=== PATIENT | female | born 1945 | race African-American/Black ===

== ENCOUNTER 2025-01-27 06:03 | Inpatient (IN) | payer MEDICARE, MEDICAID ==
[~2025-01-27] VITALS: Ht 165.1 cm; Wt 87.1 kg
[2025-01-27 06:08] VITALS: O2SAT 99
[2025-01-27 06:42] LABS: BASOPHILS % 0.4 % (0.0-2.0); EOSINOPHILS % 3.1 % (0.0-5.0); HEMATOCRIT. 36.7 % (36.0-48.0); HEMOGLOBIN. 11.7 g/dL (12.0-16.0); LYMPHOCYTES % 20.0 % (20.0-50.0); MEAN PLATELET VOLUME 9.0 fl (7.4-10.4); MONOCYTES % 5.8 % (2.0-8.0); NEUTROPHILS % 70.7 % (40.0-76.0); PLATELET 261 x1000/uL (130-400); RED BLOOD CELL COUNT 4.25 mill/uL (4.2-5.4); RED CELL DISTRIBUTION WIDTH 15.9 % (11.6-14.6)
[2025-01-27] MEDS: SODIUM CHLORIDE 0.9% 500 ML IV ONE (06:56)
[2025-01-27 06:57] LABS: CREATININE 0.6 mg/dL (0.6-1.0); UREA NITROGEN BLOOD 14 mg/dL (9-23)
[2025-01-27] MEDS ORDERED: DEXTROSE 50% WATER 50ML SYRINGE IV PRN (07:45)
[2025-01-27 08:00] VITALS: BP 138/64; PULSE 76; RESP 19; TEMP 36.5; O2SAT 100
[2025-01-27] MEDS: INSULIN LISPRO 100 UNITS/ML SUBCUT SCH (08:20)
[2025-01-27 08:45] LABS: CORTISOL 18.8 ucg/dL
[2025-01-27 08:46] LABS: ASPARTATE AMINOTRANSFERASE 12 IU/L (<34)
[2025-01-27 08:47] LABS: BILIRUBIN DIRECT < 0.1 mg/dL (<=3.0); BILIRUBIN TOTAL 0.3 mg/dL (0.1-1.0); PHOSPHORUS 3.2 mg/dL (2.5-4.9); PROTEIN TOTAL 7.3 g/dL (6.0-8.3)
[2025-01-27 08:48] LABS: T4 FREE 1.15 ng/dL (0.89-1.76)
[2025-01-27 08:50] LABS: FOLIC ACID (FOLATE) SERUM 10.82 ng/mL (>5.38); VITAMIN B12 SERUM 1551 pg/mL (211-911)
[2025-01-27] MEDS: BLOOD SUGAR DIAGNOSTIC STRIP TEST SCH (09:00)
[2025-01-27] MEDS ORDERED: GUAIFENESIN 200MG/10ML SUGAR FREE UDC PO PRN (09:15)
[2025-01-27] MEDS ORDERED: CLONIDINE 0.1MG TABLET PO PRN (09:15)
[2025-01-27] MEDS ORDERED: MAGNESIUM/ALUMINUM HYDROXIDE/SIMETHICONE 30ML UDC PO PRN (09:15)
[2025-01-27] MEDS ORDERED: ACETAMINOPHEN 325MG TABLET PO PRN (09:15)
[2025-01-27] MEDS ORDERED: IPRATROPIUM/ALBUTEROL 0.5-3(2.5)MG/3ML NEB HHN PRN (09:15)
[2025-01-27] MEDS ORDERED: HYDRALAZINE 20MG/ML VIAL IV PRN (09:30)
[2025-01-27 09:38] LABS: ERYTHROCYTE SEDIMENTATION RATE 49.0 mm/hr (0-30)
[2025-01-27] MEDS: ENOXAPARIN 40MG/0.4ML SYR SUBCUT SCH (10:00)
[2025-01-27 12:00] VITALS: BP 130/64; PULSE 80; RESP 19; TEMP 36.6; O2SAT 100
[2025-01-27] MEDS: MULTIVITAMINS,THER W-MINERALS TABLET PO SCH (12:05)
[2025-01-27] MEDS: FERROUS SULFATE 325MG TABLET PO SCH (12:05)
[2025-01-27] MEDS: FOLIC ACID 1MG TABLET PO SCH (12:06)
[2025-01-27] MEDS: THIAMINE HCL 100MG TABLET PO SCH (12:06)
[2025-01-27] MEDS: ACETAMINOPHEN 325MG TABLET PO PRN (12:06)
[2025-01-27] MEDS: AMLODIPINE 5MG TABLET PO SCH (12:08)
[2025-01-27] MEDS: SODIUM CHLORIDE 0.45% 1,000 ML IV ONE (13:47)
[2025-01-27] MEDS: PANTOPRAZOLE SODIUM 40 MG/VIAL IV SCH (13:47)
[2025-01-27 15:13] VITALS: BP 130/64; PULSE 80; RESP 19; TEMP 36.6404
[2025-01-27] MEDS: TRAMADOL 50MG TABLET PO PRN (15:48)
[2025-01-27 16:00] VITALS: BP 133/71; PULSE 85; RESP 19; TEMP 36.7; O2SAT 100
[2025-01-27 16:11] LABS: TROPONIN I HIGH SENSITIVITY < 4 ng/L (3.0-34)
[2025-01-27 20:00] VITALS: BP 123/99; PULSE 89; RESP 20; TEMP 36.2; O2SAT 100
[2025-01-27] MEDS: DOCUSATE SODIUM 100MG CAPSULE PO PRN (21:45)
[2025-01-28] VITALS: BP 124/58; PULSE 76; RESP 18; TEMP 36.6; O2SAT 97
[2025-01-28] MEDS: TRAMADOL 50MG TABLET PO PRN (00:43)
[2025-01-28 00:46] LABS: TROPONIN I HIGH SENSITIVITY < 4 ng/L (3.0-34)
[2025-01-28 04:00] VITALS: BP_SYST 124; BP_SYST 129; BP_SYST 133; BP_DIAS 61; BP_DIAS 78; BP_DIAS 80; PULSE 105; PULSE 76; PULSE 86; RESP 16; RESP 18; RESP 20; TEMP 36.2; O2SAT 97; O2SAT 98
[2025-01-28 08:00] VITALS: BP 114/76; PULSE 81; RESP 20; TEMP 36.7; O2SAT 96
[2025-01-28 10:56] LABS: CREATININE 0.5 mg/dL (0.6-1.0)
[2025-01-28 10:57] LABS: BASOPHILS % 0.3 % (0.0-2.0); EOSINOPHILS % 4.5 % (0.0-5.0); HEMATOCRIT. 35.9 % (36.0-48.0); HEMOGLOBIN. 11.6 g/dL (12.0-16.0); LDL CHOLESTEROL 134 mg/dL (5-100); LYMPHOCYTES % 26.7 % (20.0-50.0); MEAN PLATELET VOLUME 9.1 fl (7.4-10.4); MONOCYTES % 5.7 % (2.0-8.0); NEUTROPHILS % 62.8 % (40.0-76.0); PLATELET 239 x1000/uL (130-400); RED BLOOD CELL COUNT 4.19 mill/uL (4.2-5.4); RED CELL DISTRIBUTION WIDTH 15.3 % (11.6-14.6); TRIGLYCERIDE 81 mg/dL (0-150); UREA NITROGEN BLOOD 11 mg/dL (9-23)
[2025-01-28 12:00] VITALS: BP 120/48; PULSE 85; RESP 20; TEMP 36.1; O2SAT 98
[2025-01-28 16:00] VITALS: BP 119/61; PULSE 81; RESP 20; TEMP 36.6; O2SAT 98
[2025-01-28 20:00] VITALS: BP 106/61; PULSE 68; RESP 18; TEMP 36.4; O2SAT 99
[2025-01-28] MEDS: ATORVASTATIN CALCIUM 40MG TABLET PO SCH (21:23)
[2025-01-29] VITALS: BP 109/54; PULSE 82; RESP 18; TEMP 36.4; O2SAT 97
[2025-01-29 04:00] VITALS: BP_SYST 120; BP_SYST 125; BP_SYST 143; BP_DIAS 67; BP_DIAS 70; BP_DIAS 73; PULSE 78; RESP 17; TEMP 36.5; O2SAT 99
[2025-01-29] MEDS: ONDANSETRON HCL 4MG/2ML INJ IV PRN (04:35)
[2025-01-29 08:00] VITALS: BP_SYST 125; BP_SYST 134; BP_SYST 136; BP_DIAS 67; BP_DIAS 70; BP_DIAS 72; PULSE 73; RESP 18; TEMP 36.9; O2SAT 100
[2025-01-29 09:08] LABS: CREATININE 0.6 mg/dL (0.6-1.0); UREA NITROGEN BLOOD 18 mg/dL (9-23)
[2025-01-29 09:12] LABS: BASOPHILS % 0.2 % (0.0-2.0); EOSINOPHILS % 3.7 % (0.0-5.0); HEMATOCRIT. 34.9 % (36.0-48.0); HEMOGLOBIN. 11.5 g/dL (12.0-16.0); LYMPHOCYTES % 24.4 % (20.0-50.0); MEAN PLATELET VOLUME 9.4 fl (7.4-10.4); MONOCYTES % 5.0 % (2.0-8.0); NEUTROPHILS % 66.7 % (40.0-76.0); PLATELET 245 x1000/uL (130-400); RED BLOOD CELL COUNT 4.08 mill/uL (4.2-5.4); RED CELL DISTRIBUTION WIDTH 15.3 % (11.6-14.6)
[2025-01-29] MEDS ORDERED: AMOX1TAB16 PO (09:49)
[2025-01-29] MEDS ORDERED: ONDA-239 PO (09:51)
[2025-01-29 11:19] VITALS: BP 125/72; PULSE 73; RESP 18; TEMP 98.5
[2025-01-29 12:00] VITALS: BP 115/57; PULSE 73; RESP 18; TEMP 36.5; O2SAT 99
== END 2025-01-29 15:17 | disposition home or self-care (01) | DRG 74 ==
LOC: ER 06:03 → EDBEDREQTM 07:34 → EDBEDREQ 07:34 → ENRESERV 08:37 → 8WST 09:18
PROVIDERS: ADMIT Internal Medicine; ATTEND Internal Medicine
DX: G90.89 Other disorders of autonomic nervous system (principal); E87.0 Hyperosmolality and hypernatremia; I10 Essential (primary) hypertension; R53.1 Weakness; D64.9 Anemia, unspecified; R73.9 Hyperglycemia, unspecified; G62.9 Polyneuropathy, unspecified; Z88.5 Allergy status to narcotic agent; Z88.6 Allergy status to analgesic agent; Z93.3 Colostomy status
CPT/HCPCS: 36415; 71045; 74176; 80048; 80061; 80076; 82533; 82550; 82607; 82728; 82746; 82962; 83036; 83540; 83550; 83735; 84100; 84439; 84443; 84484; 85025; 85044; 85651; 86850; 86900; 97162; 99285; A4606; J1650; J2405; J2470; J7030